=== PATIENT | male | born 1985 | race Caucasian/White ===

== ENCOUNTER 2025-01-02 13:27 | Emergency (ER) | payer BC ==
[2025-01-02] MEDS ORDERED: Sodium Chloride 0.9% 10 ML Syringe FLUSH PRN (13:57)
[2025-01-02 15:04] LABS: BASOPHILS ABSOLUTE AUTO 0.1 K/mm3 (0.0-0.2); BASOPHILS PERCENT AUTO 0.9 % (0.0-1.0); EOSINOPHILS ABSOLUTE AUTO 0.6 K/mm3 (0.0-0.4); EOSINOPHILS PERCENT AUTO 5.0 % (0.0-6.0); IMMATURE GRAN ABSOLUTE AUTO 0.11 K/mm3 (0.00-0.05); IMMATURE GRAN PERCENT AUTO 0.9 % (0.0-0.4); LYMPHOCYTES ABSOLUTE AUTO 2.6 K/mm3 (1.0-4.8); LYMPHOCYTES PERCENT AUTO 21.2 % (24.0-44.0); MEAN PLATELET VOLUME 9.0 fl (9.4-12.4); MONOCYTES ABSOLUTE AUTO 0.6 K/mm3 (0.0-0.8); MONOCYTES PERCENT AUTO 4.8 % (0.0-8.0); NEUTROPHILS ABSOLUTE AUTO 8.2 K/mm3 (1.8-7.7); NEUTROPHILS PERCENT AUTO 67.2 % (41.0-71.0); NRBC ABSOLUTE 0.00 (0.00-0.02); NRBC PERCENT 0.0 % (0.0-0.2); PLATELET COUNT,PLT 404 K/mm3 (150-400); RED BLOOD CELL COUNT 3.98 M/mm3 (4.52-5.90); WHITE BLOOD CELL COUNT,WBC 12.18 K/mm3 (3.9-11.3)
[2025-01-02 15:30] LABS: A/G RATIO 0.7 (1-2); ALANINE AMINOTRANSFERASE,ALT 21.0 U/L (16-63); ASPARTATE AMNIOTRANSFERASE,AST 15.0 U/L (15-37); BILIRUBIN TOTAL 0.7 mg/dL (0.2-1.0); BLOOD UREA NITROGEN,BUN 16.0 mg/dL (7-18); CARBON DIOXIDE,CO2 27.0 mEq/L (21-32); CHLORIDE,CL 102.0 mEq/L (98-107); CREATININE 0.9 mg/dL (0.7-1.3); EST CRCL DRUG DOSING (CG) 108.01 mL/min; ESTIMATED GFR 110.0 mL/min (>60); GLUCOSE RANDOM 160.0 mg/dL (70-99); POTASSIUM,K 4.2 mEq/L (3.5-5.1); PROTEIN TOTAL,TP 8.6 g/dl (6.4-8.2); SODIUM,NA 140.0 mEq/L (136-145)
[2025-01-02 16:17] LABS: LACTIC ACID 3.1 mmol/L (0.4-2.0)
[2025-01-02] MEDS: Acetaminophen/HYDROcodone 325-5 MG Tab PO ONE (17:24)
== END 2025-01-02 18:47 | disposition home or self-care (01) ==
LOC: JD.ED 13:27
DX: T81.49XA Infection following a procedure, other surgical site, initial encounter (principal); I10 Essential (primary) hypertension; Z88.5 Allergy status to narcotic agent
CPT/HCPCS: 36415; 80053; 83605; 85025; 86140; 87040; 96360; 96372; 99284; A9270; J1171; J7030; 99283